=== PATIENT | male | born 1935 | race Caucasian/White ===

== ENCOUNTER → 2020-10-22 | Outpatient (CLI) | payer MEDICARE ==
--- NOTE | 2020-10-22 14:21 | XR ---
EXAMINATION TYPE: XR chest 2V DATE OF EXAM: 10/22/2020 COMPARISON: NONE HISTORY: Hemoptysis TECHNIQUE: Frontal and lateral views of the chest are obtained. FINDINGS: There are linear densities in the bilateral lung bases which most likely represent atelectasis. No la rge airspace disease. Cardiac silhouette is not enlarged. IMPRESSION: Likely bibasilar atelectasis.
[2020-10-22 14:29] LABS: Basophils % (A) 0 %; Eosinophils % (A) 0 %; HCT 31.5 % (39.0-53.0); HGB 9.9 gm/dL (13.0-17.5); Lymphocytes # (A) 0.7 k/uL (1.0-4.8); Lymphocytes % (A) 4 %; MCH 29.6 pg (25.0-35.0); MCHC 31.6 g/dL (31.0-37.0); MCV 93.9 fL (80.0-100.0); Mean Platelet Volume 8.8; Monocytes # (A) 0.8 k/uL (0-1.0); Monocytes % (A) 5 %; Neutrophils # (A) 14.3 k/uL (1.3-7.7); Neutrophils % (A) 89 %; Platelet Count 114 k/uL (150-450); RBC 3.35 m/uL (4.30-5.90); RDW 14.8 % (11.5-15.5); WBC 16.1 k/uL (3.8-10.6)
--- NOTE | 2020-10-22 17:13 | NM ---
EXAMINATION TYPE: NM pul vent and perfuse DATE OF EXAM: 10/22/2020 COMPARISON: NONE HISTORY: TECHNIQUE: Utilizing inhalation of 69.7 mCi Tc 99m DTPA aerosol and intravenous injection of 5.3 mCi of Tc 99m MAA, ventilation and perfusion images are acquired post injection in multiple projections. FINDINGS: There is matching defect involving the entire right lung. There is decreased perfusion and ventilatio n. The ventilation abnormality appears worse than the perfusion abnormality. The left lung shows fairly normal perfusion. There is no ventilation/perfusion mismatch. IMPRESSION: Large matching defect involving the entire right lung most likely relates to severe airway disease. T here is intermediate probability of pulmonary embolism.
== END | disposition home or self-care (01) ==
LOC: RADCTMAIN 13:36
PROVIDERS: ATTEND Nurse Practitioner Adult Health
DX: R91.8 Other nonspecific abnormal finding of lung field (principal); N18.30 Chronic kidney disease, stage 3 unspecified; R04.2 Hemoptysis
CPT/HCPCS: 83880; 85025; 71046; 78582; A9540; A9567

== ENCOUNTER 2020-10-26 12:47 | Observation (INO) | payer MEDICARE ==
[2020-10-26] MEDS ORDERED: PANTOPRAZOLE 40 MG/10 ML VIAL IVP STA (13:03)
--- NOTE | 2020-10-26 13:12 | ED ---
General Adult HPI - General Chief complaint: GI Bleed Stated complaint: GI bleed Time Seen by Provider: 10/26/20 12:58 Source: patient, RN notes reviewed, old records reviewed Mode of arrival: wheelchair Limitations: no limitations - History of Present Illness Initial comments: 85-year-old male presenting with suspected GI bleed. He has had black stool for the past several days. This was tested by his primary care physician and found to be positive for blood. He is on Eliquis with history of DVT following orthopedic surgery. He has had some increased generalized weakness. No fever. No abdominal pain. No chest pain. - Related Data Home Medications Medication Instructions Recorded Confirmed Allopurinol [Zyloprim] 200 mg PO DAILY 10/26/20 10/26/20 Apixaban [Eliquis] 2.5 mg PO BID 10/26/20 10/26/20 Aspirin EC [Ecotrin Low Dose] 81 mg PO DAILY 10/26/20 10/26/20 Budesonide/Formoterol Fumarate 2 puff INHALATION RT-BID 10/26/20 10/26/20 [Symbicort 160-4.5 Mcg Inhaler] Ergocalciferol [Vitamin D2 (1250 1,250 mcg PO Q30D 10/26/20 10/26/20 Mcg = 17780 Iu)] Finasteride [Proscar] 5 mg PO DAILY 10/26/20 10/26/20 Levothyroxine Sodium [Synthroid] 100 mcg PO DAILY 10/26/20 10/26/20 Metoprolol Succinate [Toprol XL] 100 mg PO DAILY 10/26/20 10/26/20 Allergies Allergy/AdvReac Type Severity Reaction Status Date / Time No Known Allergies Allergy Verified 10/26/20 13:51 Review of Systems ROS Statement: Those systems with pertinent positive or pertinent negative responses have been documented in the HPI. ROS Other: All systems not noted in ROS Statement are negative. Past Medical History History of Any Multi-Drug Resistant Organisms: None Reported Past Surgical History: Orthopedic Surgery Additional Past Surgical History / Comment(s): L hip replacement 09/2020 Smoking Status: Former smoker Past Alcohol Use History: None Reported Past Drug Use History: None Reported General Exam Limitations: no limitations General appearance: alert, in no apparent distress Head exam: Present: atraumatic, normocephalic Eye exam: Present: normal appearance, PERRL ENT exam: Present: normal exam Neck exam: Present: normal inspection. Absent: tenderness, meningismus Respiratory exam: Present: normal lung sounds bilaterally. Absent: respiratory distress, wheezes Cardiovascular Exam: Present: regular rate, normal rhythm GI/Abdominal exam: Present: soft. Absent: distended, tenderness, guarding Rectal exam: Present: black stool Extremities exam: Present: normal inspection, normal capillary refill. Absent: pedal edema, calf tenderness Neurological exam: Present: alert, oriented X3, CN II-XII intact. Absent: motor sensory deficit Psychiatric exam: Present: normal affect, normal mood Skin exam: Present: pallor Course Vital Signs 10/26/20 10/26/20 10/26/20 12:49 13:17 13:31 Temperature 98.2 F Pulse Rate 99 97 Respiratory 16 24 20 Rate Blood Pressure 123/68 100/71 O2 Sat by Pulse 96 93 L 97 Oximetry 10/26/20 14:26 Temperature Pulse Rate 88 Respiratory 18 Rate Blood Pressure 116/67 O2 Sat by Pulse 96 Oximetry Medical Decision Making - Medical Decision Making 85-year-old male visiting with melanotic stool, concern for GI bleed. Patient's stool is dark, positive for heme. Hemoglobin is 9.1 with only one previous in the system at 9.9 which was 4 days ago. He started on Protonix. He will be admitted with GI on consult. Case discussed with Dr. Waldron - Lab Data Result diagrams: 10/26/20 13:13 10/26/20 13:13 Lab Results 10/26/20 10/26/20 10/26/20 Range/Units 13:13 13:13 13:13 WBC 18.7 H (3.8-10.6) k/uL RBC 3.06 L (4.30-5.90) m/uL Hgb 9.1 L (13.0-17.5) gm/dL Hct 28.5 L (39.0-53.0) % MCV 93.1 (80.0-100.0) fL MCH 29.9 (25.0-35.0) pg MCHC 32.1 (31.0-37.0) g/dL RDW 16.7 H (11.5-15.5) % Plt Count 299 D (150-450) k/uL MPV 7.4 Neutrophils % 81 % Lymphocytes % 9 % Monocytes % 7 % Eosinophils % 1 % Basophils % 0 % Neutrophils # 15.1 H (1.3-7.7) k/uL Lymphocytes # 1.8 (1.0-4.8) k/uL Monocytes # 1.3 H (0-1.0) k/uL Eosinophils # 0.2 (0-0.7) k/uL Basophils # 0.1 (0-0.2) k/uL Anisocytosis Slight APTT 21.8 L (22.0-30.0) sec Sodium (137-145) mmol/L Potassium (3.5-5.1) mmol/L Chloride (98-107) mmol/L Carbon Dioxide (22-30) mmol/L Anion Gap mmol/L BUN (9-20) mg/dL Creatinine (0.66-1.25) mg/dL Est GFR (CKD-EPI)AfAm (>60 ml/min/1.73 sqM) Est GFR (CKD-EPI)NonAf (>60 ml/min/1.73 sqM) Glucose (74-99) mg/dL Calcium (8.4-10.2) mg/dL Magnesium (1.6-2.3) mg/dL Total Bilirubin (0.2-1.3) mg/dL AST (17-59) U/L ALT (4-49) U/L Alkaline Phosphatase (38-126) U/L Total Protein (6.3-8.2) g/dL Albumin (3.5-5.0) g/dL Stool Occult Blood Positive (Negative) Blood Type Recheck Bld Type Recheck Status Spec Expiration Date 10/26/20 10/26/20 Range/Units 13:13 13:13 WBC (3.8-10.6) k/uL RBC (4.30-5.90) m/uL Hgb (13.0-17.5) gm/dL Hct (39.0-53.0) % MCV (80.0-100.0) fL MCH (25.0-35.0) pg MCHC (31.0-37.0) g/dL RDW (11.5-15.5) % Plt Count (150-450) k/uL MPV Neutrophils % % Lymphocytes % % Monocytes % % Eosinophils % % Basophils % % Neutrophils # (1.3-7.7) k/uL Lymphocytes # (1.0-4.8) k/uL Monocytes # (0-1.0) k/uL Eosinophils # (0-0.7) k/uL Basophils # (0-0.2) k/uL Anisocytosis APTT (22.0-30.0) sec Sodium 143 (137-145) mmol/L Potassium 3.9 (3.5-5.1) mmol/L Chloride 108 H (98-107) mmol/L Carbon Dioxide 25 (22-30) mmol/L Anion Gap 10 mmol/L BUN 49 H (9-20) mg/dL Creatinine 1.42 H (0.66-1.25) mg/dL Est GFR (CKD-EPI)AfAm 53 (>60 ml/min/1.73 sqM) Est GFR (CKD-EPI)NonAf 46 (>60 ml/min/1.73 sqM) Glucose 191 H (74-99) mg/dL Calcium 9.1 (8.4-10.2) mg/dL Magnesium 2.5 H (1.6-2.3) mg/dL Total Bilirubin 0.9 (0.2-1.3) mg/dL AST 85 H (17-59) U/L ALT 31 (4-49) U/L Alkaline Phosphatase 88 (38-126) U/L Total Protein 6.1 L (6.3-8.2) g/dL Albumin 3.1 L (3.5-5.0) g/dL Stool Occult Blood (Negative) Blood Type Recheck No Previous Record Bld Type Recheck Status CABO Indicated Spec Expiration Date 10/29/20202312 Disposition Clinical Impression: Melena Disposition: ADMITTED IP TO THIS [facility] Condition: Stable Is patient prescribed a controlled substance at d/c from ED?: No Referrals: Augustin Tadeo MD [Primary Care Provider] - 1-2 days Decision to Admit Reason: Admit from EC Decision Date: 10/26/20 Decision Time: 14:37
[2020-10-26 14:08] LABS: Anisocytosis Slight; Basophils # (A) 0.1 k/uL (0-0.2); Basophils % (A) 0 %; Eosinophils # (A) 0.2 k/uL (0-0.7); Eosinophils % (A) 1 %; HCT 28.5 % (39.0-53.0); HGB 9.1 gm/dL (13.0-17.5); Lymphocytes # (A) 1.8 k/uL (1.0-4.8); Lymphocytes % (A) 9 %; MCH 29.9 pg (25.0-35.0); MCHC 32.1 g/dL (31.0-37.0); MCV 93.1 fL (80.0-100.0); Mean Platelet Volume 7.4; Monocytes # (A) 1.3 k/uL (0-1.0); Monocytes % (A) 7 %; Neutrophils # (A) 15.1 k/uL (1.3-7.7); Neutrophils % (A) 81 %; Platelet Count 299 k/uL (150-450); RBC 3.06 m/uL (4.30-5.90); RDW 16.7 % (11.5-15.5); WBC 18.7 k/uL (3.8-10.6)
[2020-10-26 14:09] LABS: Albumin 3.1 g/dL (3.5-5.0); Calcium 9.1 mg/dL (8.4-10.2); Magnesium 2.5 mg/dL (1.6-2.3); Potassium 3.9 mmol/L (3.5-5.1); Total Bilirubin 0.9 mg/dL (0.2-1.3); Total Protein 6.1 g/dL (6.3-8.2)
[2020-10-26] MEDS ORDERED: ACETAMINOPHEN TAB 325 MG TAB PO PRN (14:34)
[2020-10-26] MEDS ORDERED: NALOXONE 0.4 MG/ML 1 ML VIAL IV PRN (14:34)
[2020-10-26] MEDS: SODIUM CHLORIDE 0.9% 1,000 ML IV SCH (14:54)
--- NOTE | 2020-10-26 15:21 | P.HPIM ---
History of Present Illness H&P Date: 10/26/20 Chief Complaint: Melena This is a 85-year-old male with past medical history noted below who presented to the emergency room with melena. Patient was seen by me in the ER. His at bedside had been providing history. Apparently, patient had the recent hip replacement surgery and last week he was having problems with worsening cough and some hemoptysis. A VQ scan was ordered and came back intermediate probability for PE and patient was started on anticoagulation with Eliquis. He was also given antibiotic. He is telling me that his respiratory symptoms resolved yesterday he started having episode of black stool. Patient denies any abdominal pain. He has been taking Eliquis as prescribed. He denies drinking alcohol or using any NSAIDs. He never had problems with GI bleed in the past. He reports last colonoscopy more than 10 years ago. He was evaluated in the ER and was found to be hemodynamically stable. Hemoglobin is 9.1. He'll be placed in observation for GI evaluation. Patient denies any history of COPD to his knowledge. He is a former smoker and quit 10 years ago. He is maintained on Symbicort at home Review of Systems Review of system: 14 points review of systems were obtained and were negative except to what were mentioned in the HPI. Past Medical History History of Any Multi-Drug Resistant Organisms: None Reported Past Surgical History: Orthopedic Surgery Additional Past Surgical History / Comment(s): L hip replacement 09/2020 Smoking Status: Former smoker Past Alcohol Use History: None Reported Past Drug Use History: None Reported Medications and Allergies Home Medications Medication Instructions Recorded Confirmed Type Allopurinol [Zyloprim] 200 mg PO DAILY 10/26/20 10/26/20 History Apixaban [Eliquis] 2.5 mg PO BID 10/26/20 10/26/20 History Aspirin EC [Ecotrin Low Dose] 81 mg PO DAILY 10/26/20 10/26/20 History Budesonide/Formoterol Fumarate 2 puff INHALATION RT-BID 10/26/20 10/26/20 History [Symbicort 160-4.5 Mcg Inhaler] Ergocalciferol [Vitamin D2 (1250 1,250 mcg PO Q30D 10/26/20 10/26/20 History Mcg = 19399 Iu)] Finasteride [Proscar] 5 mg PO DAILY 10/26/20 10/26/20 History Levothyroxine Sodium [Synthroid] 100 mcg PO DAILY 10/26/20 10/26/20 History Metoprolol Tartrate [Lopressor] 12.5 mg PO BID 10/26/20 10/26/20 History Simvastatin [Zocor] 40 mg PO HS 10/26/20 10/26/20 History Allergies Allergy/AdvReac Type Severity Reaction Status Date / Time No Known Allergies Allergy Verified 10/26/20 13:51 Physical Exam Vitals: Vital Signs Temp Pulse Resp BP Pulse Ox 10/26/20 14:54 86 18 108/65 98 10/26/20 14:26 88 18 116/67 96 10/26/20 13:31 20 97 10/26/20 13:17 97 24 100/71 93 L 10/26/20 12:49 98.2 F 99 16 123/68 96 Intake and Output 10/26/20 10/26/20 10/26/20 06:59 14:59 22:59 Other: Weight 97.069 kg General: The patient is awake and alert, in no distress Eye: there is normal conjunctiva bilaterally. Neck: The neck is supple, there is no JVD. Cardiovascular: Normal S1-S2, no S3-S4, no murmurs. Respiratory: Lungs clear to auscultation bilaterally Gastrointestinal: Abdomen is soft, nontender Musculoskeletal: There is no pedal edema. Neurological:. Speech is normal. Skin: Skin is warm and dry Results CBC & Chem 7: 10/26/20 13:13 10/26/20 13:13 Labs: Abnormal Lab Results - Last 24 Hours (Table) 10/26/20 10/26/20 10/26/20 Range/Units 13:13 13:13 13:13 WBC 18.7 H (3.8-10.6) k/uL RBC 3.06 L (4.30-5.90) m/uL Hgb 9.1 L (13.0-17.5) gm/dL Hct 28.5 L (39.0-53.0) % RDW 16.7 H (11.5-15.5) % Neutrophils # 15.1 H (1.3-7.7) k/uL Monocytes # 1.3 H (0-1.0) k/uL APTT 21.8 L (22.0-30.0) sec Chloride 108 H (98-107) mmol/L BUN 49 H (9-20) mg/dL Creatinine 1.42 H (0.66-1.25) mg/dL Glucose 191 H (74-99) mg/dL Magnesium 2.5 H (1.6-2.3) mg/dL AST 85 H (17-59) U/L Total Protein 6.1 L (6.3-8.2) g/dL Albumin 3.1 L (3.5-5.0) g/dL Assessment and Plan Assessment: This is a 85-year-old male with past medical history noted below who presented to the emergency room with melena. Patient will be placed on observation for further management of his medical problems noted below. 1. Suspected upper GI bleed, started on IV Protonix 40 mg twice daily. Clear liquids for now and nothing by mouth after midnight. GI consulted for possible EGD in the morning. Hold home dose of Eliquis and aspirin. 2. Acute on chronic anemia, probably blood loss. We will continue to monitor hemoglobin every 12 hours. Transfuse as needed for hemoglobin less than 8 3. Recently diagnosed PE, these are intermittent probability VQ scan after hip replacement surgery. Hold anticoagulation for now in setting of GI bleed. I wonder if the VQ scan was positive secondary to underlying lung disease? 4. Chronic medical problems: Essential hypertension, hypothyroidism, underlying COPD 5. DVT prophylaxis with SCDs
[2020-10-26] MEDS: SYMBICORT 160-4.5 MCG INHALER INHALATION SCH (21:12)
[2020-10-26] MEDS: ATORVASTATIN 20 MG TAB PO SCH (21:17)
[2020-10-26] MEDS: PANTOPRAZOLE 40 MG/10 ML VIAL IVP SCH (21:17)
[2020-10-26] MEDS: METOPROLOL TARTRATE 12.5 MG TAB PO SCH (22:56)
[2020-10-27] MEDS: SODIUM CHLORIDE 0.9% 1,000 ML IV SCH ×2 (05:28→17:29)
[2020-10-27] MEDS: SYMBICORT 160-4.5 MCG INHALER INHALATION SCH ×2 (08:06→20:35)
[2020-10-27] MEDS: LEVOTHYROXINE 100 MCG TAB PO SCH (09:18)
[2020-10-27] MEDS: allopurinoL 100 MG TAB PO SCH (09:18)
[2020-10-27] MEDS: METOPROLOL TARTRATE 12.5 MG TAB PO SCH ×2 (09:19→20:10)
[2020-10-27] MEDS: FINASTERIDE 5 MG TAB PO SCH (09:19)
[2020-10-27] MEDS: PANTOPRAZOLE 40 MG/10 ML VIAL IVP SCH ×2 (09:20→20:10)
[2020-10-27 09:44] LABS: Anisocytosis Slight; Basophils % (A) 0 %; Eosinophils # (A) 0.3 k/uL (0-0.7); Eosinophils % (A) 3 %; HCT 25.8 % (39.0-53.0); HGB 8.4 gm/dL (13.0-17.5); Hypochromasia Slight; Lymphocytes # (A) 1.1 k/uL (1.0-4.8); Lymphocytes % (A) 11 %; MCH 30.8 pg (25.0-35.0); MCHC 32.5 g/dL (31.0-37.0); MCV 94.9 fL (80.0-100.0); Mean Platelet Volume 7.1; Monocytes # (A) 0.6 k/uL (0-1.0); Monocytes % (A) 6 %; Neutrophils # (A) 8.3 k/uL (1.3-7.7); Neutrophils % (A) 79 %; Platelet Count 231 k/uL (150-450); RBC 2.72 m/uL (4.30-5.90); RDW 16.5 % (11.5-15.5); WBC 10.6 k/uL (3.8-10.6)
[2020-10-27 09:47] LABS: Basophils # (A) 0.03 X 10*3/uL (0.00-0.10); Basophils % (A) 0.3 %; Eosinophils # (A) 0.32 X 10*3/uL (0.04-0.35); Eosinophils % (A) 2.8 %; HCT 23.9 % (39.6-50.0); HGB 7.4 g/dL (13.0-17.0); Lymphocytes # (A) 1.27 X 10*3/uL (0.90-5.00); Lymphocytes % (A) 11.3 %; MCH 30.7 pg (27.0-32.0); MCV 99.2 fL (80.0-97.0); Mean Platelet Volume 9.9 fL (9.5-12.2); Monocytes # (A) 1.14 X 10*3/uL (0.20-1.00); Monocytes % (A) 10.2 %; Neutrophils # (A) 8.24 X 10*3/uL (1.80-7.70); Neutrophils % (A) 73.4 %; Platelet Count 188 X 10*3/uL (140-440); RBC 2.41 X 10*6/uL (4.40-5.60); RDW 16.1 % (11.5-14.5); WBC 11.23 X 10*3/uL (4.50-10.00)
[2020-10-27 09:59] LABS: African American GFR (CKD) 59 (>60 ml/min/1.73 sqM); Anion Gap 6 mmol/L; Blood Urea Nitrogen 35 mg/dL (9-20); Calcium 8.4 mg/dL (8.4-10.2); Carbon Dioxide 28 mmol/L (22-30); Chloride 109 mmol/L (98-107); Glucose 135 mg/dL (74-99); Non-African American GFR(CKD) 51 (>60 ml/min/1.73 sqM); Potassium 3.8 mmol/L (3.5-5.1); Sodium 143 mmol/L (137-145)
--- NOTE | 2020-10-27 16:04 | P.CONS ---
History of Present Illness - Reason for Consult Consult date: 10/27/20 Melena, GI bleed Requesting physician: Augustin Tadeo - Chief Complaint Melena - History of Present Illness This is an 85-year-old white male who presented to the emergency department with complaints of black tarry stools for the last 3 days duration. He has a past medical history of recent hip surgery, hypothyroidism, hypertension, and hyperlipidemia. The patient recently underwent hip surgery on 10/19/2020, a few days ago he started coughing frequently and was coughing up phlegm that was reportedly blood-tinged and having shortness of breath. He had an outpatient VQ scan that showed probable pulmonary embolism and was started on Eliquis 2.5 mg twice a day I has primary care physician. He states he started having black tarry stools approximately 3 days ago, one stool per day. He denies any abdominal pain, nausea, or vomiting. States he's had a decreased appetite for the last several days. He denies any previous history of peptic ulcer disease or GERD. He has had no previous GI bleed, no previous EGD. Last colonoscopy he states was likely greater than 10 years. On presentation he had a positive occult stool, WBC 18.7, hemoglobin 9.1, hematocrit 28.5, platelet count 299,000, total bilirubin 0.9, alkaline phosphatase 88, AST 85, ALT 31, with elevation in his BUN. Review of Systems REVIEW OF SYSTEMS: CARDIOPULMONARY: No chest pain. Previous shortness of breath and cough, now resolved. Gastrointestinal: No abdominal pain. No nausea or vomiting. No hematemesis, coffee-ground emesis. No rectal bleeding. Black tarry stools 3 days. GENITOURINARY: No dysuria or hematuria. MUSCULOSKELETAL: Reports normal range of motion., Joint pain. SKIN: No rashes. No jaundice. ENDOCRINE: No chills, fevers. No excessive weight gain or loss. No polydipsia or polyuria. PSYCHIATRIC: Unremarkable. NEUROLOGY: No change in mental status. Denies dizziness, headache. ENT: Vision unremarkable. CONSTITUTIONAL: No recent weight loss. No fever, chills, night sweats. Decreased appetite. Past Medical History Past Medical History: Diabetes Mellitus, Hyperlipidemia, Hypertension, Myocardial Infarction ([place]), Pulmonary Embolus ([place]), Renal Disease Additional Past Medical History / Comment(s): Heart Cath with Stents, sees nephr ology for high K+. Last Myocardial Infarction Date:: 10/17/2009 History of Any Multi-Drug Resistant Organisms: None Reported Past Surgical History: Orthopedic Surgery Additional Past Surgical History / Comment(s): L hip replacement 09/2020 Past Anesthesia/Blood Transfusion Reactions: No Reported Reaction Past Psychological History: No Psychological Hx Reported Smoking Status: Former smoker Past Alcohol Use History: None Reported Past Drug Use History: None Reported Medications and Allergies Home Medications Medication Instructions Recorded Confirmed Type Allopurinol [Zyloprim] 200 mg PO DAILY 10/26/20 10/26/20 History Apixaban [Eliquis] 2.5 mg PO BID 10/26/20 10/26/20 History Aspirin EC [Ecotrin Low Dose] 81 mg PO DAILY 10/26/20 10/26/20 History Budesonide/Formoterol Fumarate 2 puff INHALATION RT-BID 10/26/20 10/26/20 History [Symbicort 160-4.5 Mcg Inhaler] Ergocalciferol [Vitamin D2 (1250 1,250 mcg PO Q30D 10/26/20 10/26/20 History Mcg = 32954 Iu)] Finasteride [Proscar] 5 mg PO DAILY 10/26/20 10/26/20 History Levothyroxine Sodium [Synthroid] 100 mcg PO DAILY 10/26/20 10/26/20 History Metoprolol Tartrate [Lopressor] 12.5 mg PO BID 10/26/20 10/26/20 History Simvastatin [Zocor] 40 mg PO HS 10/26/20 10/26/20 History Allergies Allergy/AdvReac Type Severity Reaction Status Date / Time No Known Allergies Allergy Verified 10/26/20 13:51 Physical Exam Vitals: Vital Signs Temp Pulse Pulse Resp BP BP Pulse Ox 10/27/20 07:56 82 24 10/27/20 06:33 98.2 F 82 24 114/64 97 10/27/20 02:00 98.3 F 81 17 104/62 97 10/26/20 20:00 98.7 F 86 17 106/61 100 10/26/20 19:35 17 10/26/20 19:20 98.0 F 82 18 122/77 10/26/20 18:28 98 F 82 18 116/59 95 10/26/20 16:42 99.0 F 83 18 140/82 100 10/26/20 14:54 86 18 108/65 98 10/26/20 14:26 88 18 116/67 96 10/26/20 13:31 20 97 10/26/20 13:17 97 24 100/71 93 L 10/26/20 12:49 98.2 F 99 16 123/68 96 Intake and Output 10/26/20 10/27/20 10/27/20 22:59 06:59 14:59 Intake Total 480 Output Total 500 400 Balance -20 -400 Intake: Oral 480 Output: Urine 500 400 Other: # Voids 1 2 Weight 97.069 kg General appearance: The patient is alert, oriented, appears in no acute distress. HET: Head is normocephalic and atraumatic. Conjunctiva pink. Sclera anicteric. Neck: Supple without lymphadenopathy. Trachea midline. Heart: S1 S2. Regular rate and rhythm. Lungs: Clear to auscultation. Abdomen: Soft, nontender, nondistended with bowel sounds. No guarding or ri gidity. Skin: No rashes. No jaundice. Extremities: Normal skin color and turgor. No pedal edema. Neurological: No focal deficits. Alert and oriented 2. Results CBC & Chem 7: 10/27/20 09:26 10/27/20 09:26 Labs: Abnormal Lab Results - Last 24 Hours (Table) 10/26/20 10/26/20 10/26/20 Range/Units 13:13 13:13 13:13 WBC 18.7 H (3.8-10.6) k/uL RBC 3.06 L (4.30-5.90) m/uL Hgb 9.1 L (13.0-17.5) gm/dL Hct 28.5 L (39.0-53.0) % RDW 16.7 H (11.5-15.5) % Neutrophils # 15.1 H (1.3-7.7) k/uL Monocytes # 1.3 H (0-1.0) k/uL APTT 21.8 L (22.0-30.0) sec Chloride 108 H (98-107) mmol/L BUN 49 H (9-20) mg/dL Creatinine 1.42 H (0.66-1.25) mg/dL Glucose 191 H (74-99) mg/dL Magnesium 2.5 H (1.6-2.3) mg/dL AST 85 H (17-59) U/L Total Protein 6.1 L (6.3-8.2) g/dL Albumin 3.1 L (3.5-5.0) g/dL Assessment and Plan (1) Melena Narrative/Plan: 85-year-old male who presented to the emergency department with complaints of black tarry stool for the last 3 days duration. Patient recently underwent a right hip surgery 10/19/2020. Following this he had complaints of shortness of breath and a cough. His PCP scheduled an outpatient VQ scan which showed probable pulmonary embolism. He was started on Eliquis. His last dose was 10/26/2020. He has no other symptoms, denies any abdominal pain, nausea, or vomiting. No previous history of peptic ulcer disease or GERD. No previous EGD. Last colonoscopy approximately 10 years ago. He denies taking any NSAIDs. He is on a low-dose daily aspirin. Current Visit: Yes Status: Acute Code(s): K92.1 - MELENA SNOMED Code(s): 8036362 Plan: 1. Clear liquid diet, nothing by mouth after midnight 2. Continue to hold Eliquis 3. Continue Protonix 40 mg twice a day 4. Repeat CBC daily, transfuse for hemoglobin less than 7 5. Avoid NSAIDs 6. Patient will be scheduled for EGD tomorrow, please obtain consent Thank you for this consultation, we will continue to follow Dr. Kinjal Quintanilla I agree with the dictator's note, documented as a scribe by Becca Wright.
[2020-10-27] MEDS ORDERED: LIDOCAINE 1% (10MG/ML) FOR IV START INTRADERMA PRN (16:18)
--- NOTE | 2020-10-27 16:28 | CT ---
CT CHEST FOR PULMONARY EMBOLISM. EXAMINATION TYPE: CT angio chest DATE OF EXAM: 10/27/2020 INDICATION: Possible PE CT DLP: 404.90 mGycm, Automated exposure control for dose reduction was used. CONTRAST: Patient injected with 80 mL of Isovue 370. COMPARISON: None TECHNIQUE: CT of the chest is performed on a spiral scan at 2 mm thick sections. Study is performed with intravenous contrast timed for evaluation for pulmonary embolism. This will limit additional po rtions of the evaluation. 3-D MIP images reconstructed by the technologist are reviewed on the compu ter in the coronal and sagittal planes. FINDINGS: No persistent filling defects are evident to suggest an acute pulmonary embolism. The ascending aorta diameter at the level of the main pulmonary artery is 4.3 cm. The main pulmonary artery diameter at the bifurcation is 2.5 cm. There is a consolidation in the right lower lobe. Status post scattered pneumonitis type changes are within the right lung. There is a 0.8 cm nodule in the periphery of the right middle lobe. Series 5 i mage 92. There is an area of thickening extending from the right lower lobe consolidation measuring 4 .1 x 1.2 cm. Neoplasm is not excluded. Nodular densities within the right perihilar region measuring 0.8 cm. Series 5 image 76. 0.4 cm density is in the posterior right lung. Series 5 image 48 there is increased density through the anterior right apex. Small lymph nodes within the mediastinum. There is a minimal right pleural effusion. Coronary artery calcification is noted. Hiatal hernia is p resent. There is reflux into the proximal inferior vena cava. Limited CT section through the upper abdomen are unremarkable. IMPRESSIONS: 1. No suspicious persistent filling defects pulmonary embolism. 2. Suspected lung mass right midlung. This may extend to a consolidation in the right lower lobe. Und erlying pneumonia may be present. 3. Additional small nodules through the right lung. Metastasis is not excluded.
[2020-10-27] MEDS: LACTATED RINGERS 1,000 ML IV SCH (16:45)
--- NOTE | 2020-10-27 19:15 | P.PN ---
Subjective Progress Note Date: 10/27/20 (delayed charting seen at 1200) Principal diagnosis: melena Patient is an 85-year-old male with a history of diabetes mellitus, hypertension, dyslipidemia who was recently diagnosed with pulmonary embolism secondary to intermediate probability VQ scan and was started on Eliquis. He then noted dark tarry stools and subsequently presented to the ER. He was seen by gastroenterology and plan is for colonoscopy. Patient seen and examined at bedside. He denies any nausea or vomiting. He hasn't had any recurrent stools today. He denies any chest pain or shortness of breath. We discussed obtaining CT of the chest to confirm pulmonary embolism as he is now higher risk for resuming anticoagulation and VQ scan was atypical for pulmonary embolism. He reports smoking from age 10 to age 74 approximately 1-2 packs daily. He denies any history of known COPD or emphysema. General: non toxic, no distress, appears at stated age Derm: warm, dry Head: atraumatic, normocephalic, symmetric Eyes: EOMI, no lid lag, anicteric sclera Mouth: no lip lesion, mucus membranes moist Cardiovascular: S1S2 reg, no murmur, positive posterior tibial pulse bilateral, Lungs: CTA bilateral, no rhonchi, no rales , no accessory muscle use Abdominal: soft, nontender to palpation, no guarding, no appreciable organomegaly Ext: no gross muscle atrophy, no edema, no contractures Neuro: CN II-XI grossly intact, no focal neuro deficits Psych: Alert, oriented, appropriate affect GI bleed with symptomatic anemia -No indication for transfusion at this point in time -Follow CBC -GI recommendations appreciated plan is for endoscopy in a.m. Possible pulmonary embolism -Eliquis on his on hold secondary to GI bleed -Check CTA of chest CKD, at baseline -Repeat creatinine a.m. -Patient has been pretreated with IV fluids for contrast exposure. Diabetes mellitus type 2 -Not on any oral medication -Follow a.m. blood glucose o Chronic conditions: Hypertension, dyslipidemia, coronary artery disease Objective - Vital Signs Vital signs: Vital Signs Temp 97.9 F 10/27/20 13:41 Pulse 63 10/27/20 14:00 Resp 20 10/27/20 14:00 BP 98/66 10/27/20 13:41 Pulse Ox 98 10/27/20 13:41 Intake & Output 10/27/20 10/27/20 10/28/20 06:59 18:59 06:59 Output Total 900 400 Balance -900 -400 Weight 97.069 kg Output: Urine 900 400 Other: # Voids 2 1 # Bowel Movements 0 - Labs CBC & Chem 7: 10/27/20 09:26 10/27/20 09:26 Labs: Abnormal Lab Results - Last 24 Hours (Table) 10/27/20 10/27/20 10/27/20 Range/Units 06:23 09:26 09:26 WBC 11.23 H (4.50-10.00) X 10*3/uL RBC 2.41 L 2.72 L (4.40-5.60) X 10*6/uL Hgb 7.4 L 8.4 L (13.0-17.0) g/dL Hct 23.9 L 25.8 L (39.6-50.0) % MCV 99.2 H (80.0-97.0) fL MCHC 31.0 L (32.0-37.0) g/dL RDW 16.1 H 16.5 H (11.5-14.5) % Absolute Nucleated RBC 0.05 H (0.00-0.00) X 10*3/uL Immature Gran # 0.23 H (0.00-0.04) X 10*3/uL Neutrophils # 8.24 H 8.3 H (1.80-7.70) X 10*3/uL Monocytes # 1.14 H (0.20-1.00) X 10*3/uL NRBC/100 WBC Diff 0.4 H (0.0-0.0) /100 WBCS Chloride 109 H (98-107) mmol/L BUN 35 H (9-20) mg/dL Creatinine 1.29 H (0.66-1.25) mg/dL Glucose 135 H (74-99) mg/dL
[2020-10-27] MEDS: ATORVASTATIN 20 MG TAB PO SCH (20:10)
[2020-10-28] MEDS: LEVOTHYROXINE 100 MCG TAB PO SCH (05:38)
[2020-10-28] MEDS: SYMBICORT 160-4.5 MCG INHALER INHALATION SCH ×2 (07:48→21:22)
[2020-10-28] MEDS: SODIUM CHLORIDE 0.9% 1,000 ML IV SCH ×2 (08:02→17:08)
[2020-10-28] MEDS: allopurinoL 100 MG TAB PO SCH (08:02)
[2020-10-28] MEDS: FINASTERIDE 5 MG TAB PO SCH (08:02)
[2020-10-28] MEDS: METOPROLOL TARTRATE 12.5 MG TAB PO SCH ×2 (08:02→22:21)
[2020-10-28] MEDS: PANTOPRAZOLE 40 MG/10 ML VIAL IVP SCH ×2 (08:03→21:56)
[2020-10-28 09:54] LABS: HCT 25.3 % (39.6-50.0); HGB 7.7 g/dL (13.0-17.0); MCH 30.6 pg (27.0-32.0); MCHC 30.4 g/dL (32.0-37.0); MCV 100.4 fL (80.0-97.0); Mean Platelet Volume 9.9 fL (9.5-12.2); Platelet Count 236 X 10*3/uL (140-440); RBC 2.52 X 10*6/uL (4.40-5.60); RDW 16.4 % (11.5-14.5); WBC 10.87 X 10*3/uL (4.50-10.00)
[2020-10-28 11:16] LABS: Basophils # (A) 0.03 X 10*3/uL (0.00-0.10); Basophils % (A) 0.3 %; Eosinophils # (A) 0.34 X 10*3/uL (0.04-0.35); Eosinophils % (A) 3.1 %; Lymphocytes # (A) 1.49 X 10*3/uL (0.90-5.00); Lymphocytes % (A) 13.7 %; Monocytes # (A) 0.74 X 10*3/uL (0.20-1.00); Monocytes % (A) 6.8 %; Neutrophils # (A) 8.14 X 10*3/uL (1.80-7.70); Neutrophils % (A) 74.9 %
[2020-10-28] MEDS ORDERED: PROPOFOL 10 MG/ML 20 ML VIAL IV ONE (11:54)
[2020-10-28] MEDS ORDERED: LIDOCAINE 1% INJ 10MG/ML (20 ML MDV) ONE (11:54)
[2020-10-28] MEDS ORDERED: IV FLUID CONTINUATION 800 ML IV ONE (11:55)
--- NOTE | 2020-10-28 12:08 | P.PCN ---
Date of Procedure: 10/28/20 Procedure(s) Performed: BRIEF HISTORY: Patient is a 85-year-old, pleasant, white male scheduled for an upper endoscopy as a part of evaluation of multiple episodes of dark colored stools of 3 days' duration. He was recently started on a Eliquis of possible DVT following left hip repair. Eliquis has been on hold for the last 2 days.. PROCEDURE PERFORMED: Esophagogastroduodenoscopy. PREOPERATIVE DIAGNOSIS:.acute GI bleed and anemia with a hemoglobin of 7.7 g/dL. IV sedation per anesthesia. PROCEDURE: After informed consent was obtained, the patient was brought into the endoscopy unit. IV sedation was administered by Anesthesia under continuous monitoring. Initially the Olympus GIF-140 video endoscope was inserted into the mouth. Esophagus intubated without any difficulty. It was gradually advanced into the stomach and duodenum and carefully examined. there was early pyloric stenosis noted but however with gentle pressure I was able to advance the scope into the duodenum. The bulb and the second part of the duodenum appeared normal. The scope at this time was withdrawn to the stomach, adequately insufflated with air, and upon careful examination, mucosa of the antrum, body, cardia and the fundus appeared normal. The scope was then withdrawn into the esophagus. The GE junction was located at 39 cm from the incisors. The esophagus appeared normal. There were no erosions or ulcerations seen and the patient tolerated the procedure well. IMPRESSION: 1.. 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 No active upper GI bleed. RECOMMENDATIONS: The findings of this examination were discussed with the patient evidence of active upper GI bleed seen, he'll be scheduled for a colonoscopy tomorrow. He will remain on clear liquid diet today. Continue to hold Eliquis for now. .
--- NOTE | 2020-10-28 12:43 | P.PN ---
Subjective Progress Note Date: 10/28/20 No new complaints. Doing well, awaiting EGD. Objective - Vital Signs Vital signs: Vital Signs Temp 98.3 F 10/28/20 07:00 Pulse 88 10/28/20 07:00 Resp 16 10/28/20 07:00 BP 116/66 10/28/20 07:00 Pulse Ox 94 L 10/28/20 07:00 Intake & Output 10/27/20 10/28/20 10/28/20 18:59 06:59 18:59 Intake Total 100 Output Total 400 450 Balance -400 -450 100 Intake: IV 100 Output: Urine 400 450 Other: # Voids 1 1 # Bowel Movements 0 - Exam Gen: awake, alert HEENT: normocephalic, atraumatic, good hearing acuity, moist mucous membranes Resp: good air exchange, breathing comfortably with no accessory muscle use CVS: good distal perfusion x 4, GI: soft, NTTP, ND : no SPT, no CVAT, ely catheter not present MSK: no pitting edema, no clubbing Neuro: non-focal, moving all extremities Psych: cooperative, euthymic mood - Labs CBC & Chem 7: 10/28/20 04:50 10/27/20 09:26 Labs: Abnormal Lab Results - Last 24 Hours (Table) 10/28/20 Range/Units 04:50 WBC 10.87 H (4.50-10.00) X 10*3/uL RBC 2.52 L (4.40-5.60) X 10*6/uL Hgb 7.7 L (13.0-17.0) g/dL Hct 25.3 L (39.6-50.0) % MCV 100.4 H (80.0-97.0) fL MCHC 30.4 L (32.0-37.0) g/dL RDW 16.4 H (11.5-14.5) % Absolute Nucleated RBC 0.05 H (0.00-0.00) X 10*3/uL Immature Gran # 0.13 H (0.00-0.04) X 10*3/uL Neutrophils # 8.14 H (1.80-7.70) X 10*3/uL NRBC/100 WBC Diff 0.5 H (0.0-0.0) /100 WBCS Assessment and Plan Assessment: GI bleed with symptomatic anemia -No indication for transfusion at this point in time -Follow CBC -GI recommendations appreciated plan is for endoscopy 10/28 Right Middle Lobe Mass -Eliquis on his on hold secondary to GI bleed -Check CTA of chest = possible RML mass, f/u with pulm for bx -Pulm consult CKD, at baseline -Repeat creatinine a.m. -Patient has been pretreated with IV fluids for contrast exposure. Diabetes mellitus type 2 -Not on any oral medication -Follow a.m. blood glucose o Chronic conditions: Hypertension, dyslipidemia, coronary artery disease
--- NOTE | 2020-10-28 16:11 | P.CNPUL ---
History of Present Illness Consult date: 10/28/20 Requesting physician: Dahlia Waldron Reason for consult: abnormal CXR/CT Chief complaint: Black tarry stools History of present illness: This is a very pleasant 85-year-old gentleman who presented here to the emergency room on 10/26/2020 with complaints of black tarry stools for several days. He was on Eliquis for history of DVT following orthopedic surgery. He had some generalized weakness as well. A CT angiogram was performed to rule out pulmonary embolism. It was negative for PE. However he was found to have a consolidation in the right lower lobe. There is a 0.8 cm nodule in the periphery of the right middle lobe. There is thickening extended from the right lower lobe consolidation measuring 4.1 x 1.2 cm. Neoplasm is not excluded. We are consulted for the same. He is seen today in consultation on the regular medical floor. He is currently resting comfortably in bed. Awake and alert in no acute distress. He did undergo EGD today which revealed early pyloric stenos is but no evidence of peptic ulcer disease. No active upper GI bleed. Plan is for colonoscopy tomorrow. His Eliquis is on hold. He denies any worsening shortness of breath, cough or congestion. No fever chills or night sweats. He is maintaining O2 saturations in the 90s on room air. He is afebrile. Hemodynamically stable. White count 10.8. Hemoglobin 7.7. Sodium 143. Potassium 3.8. Creatinine 1.29. Coronavirus not detected. Stool for occult blood positive. 0.9% normal saline at 75 ML's per hour. On Protonix. Review of Systems REVIEW OF SYSTEMS: CONSTITUTIONAL: Denies any recent significant weight loss or weight gain. EYES: Denies change in vision. EARS, NOSE, MOUTH, THROAT: Denies headaches, denies sore throat. CARDIOVASCULAR: Denies chest pain, palpitations or syncopal episodes. RESPIRATORY: Denies shortness of breath, cough, congestion or hemoptysis. GASTROINTESTINAL: Positive for black tarry stools GENITOURINARY: Denies hematuria, denies infections. MUSKULOSKELETAL: Denies pain, denies swelling. INTEGUMENTARY: Denies rash, denies eczema. NEUROLOGICAL: Denies recent memory loss, no recent seizure activity. PSYCHIATRIC: Denies anxiety, denies depression. HEMATOLOGIC/LYMPHATIC: Denies anemia, denies enlarged lymph nodes. Past Medical History Past Medical History: Diabetes Mellitus, Hyperlipidemia, Hypertension, Myocardial Infarction ([place]), Pulmonary Embolus ([place]), Renal Disease Additional Past Medical History / Comment(s): Heart Cath with Stents, sees nephrology for high K+. Last Myocardial Infarction Date:: 10/17/2009 History of Any Multi-Drug Resistant Organisms: None Reported Past Surgical History: Orthopedic Surgery Additional Past Surgical History / Comment(s): L hip replacement 09/2020 Past Anesthesia/Blood Transfusion Reactions: No Reported Reaction Past Psychological History: No Psychological Hx Reported Smoking Status: Former smoker Past Alcohol Use History: None Reported Past Drug Use History: None Reported Medications and Allergies Home Medications Medication Instructions Recorded Confirmed Type Allopurinol [Zyloprim] 200 mg PO DAILY 10/26/20 10/26/20 History Apixaban [Eliquis] 2.5 mg PO BID 10/26/20 10/26/20 History Aspirin EC [Ecotrin Low Dose] 81 mg PO DAILY 10/26/20 10/26/20 History Budesonide/Formoterol Fumarate 2 puff INHALATION RT-BID 10/26/20 10/26/20 History [Symbicort 160-4.5 Mcg Inhaler] Ergocalciferol [Vitamin D2 (1250 1,250 mcg PO Q30D 10/26/20 10/26/20 History Mcg = 67236 Iu)] Finasteride [Proscar] 5 mg PO DAILY 10/26/20 10/26/20 History Levothyroxine Sodium [Synthroid] 100 mcg PO DAILY 10/26/20 10/26/20 History Metoprolol Tartrate [Lopressor] 12.5 mg PO BID 10/26/20 10/26/20 History Simvastatin [Zocor] 40 mg PO HS 10/26/20 10/26/20 History Allergies Allergy/AdvReac Type Severity Reaction Status Date / Time No Known Allergies Allergy Verified 10/26/20 13:51 Physical Exam Vitals: Vital Signs Temp Pulse Resp BP Pulse Ox 10/28/20 14:45 98.5 F 66 14 110/65 92 L 10/28/20 07:00 98.3 F 88 16 116/66 94 L 10/28/20 01:41 98.4 F 73 16 96/56 93 L 10/27/20 19:11 98.4 F 70 18 108/65 93 L Intake and Output 10/28/20 10/28/20 10/28/20 06:59 14:59 22:59 Intake Total 100 Output Total 450 500 Balance -450 -400 Intake: IV 100 Output: Urine 450 500 Other: # Voids 1 4 # Bowel Movements 1 GENERAL EXAM: Alert, very pleasant 85-year-old gentleman, on room air, comfortable in no apparent distress. HEAD: Normocephalic. EYES: Normal reaction of pupils, equal size. NOSE: Clear with pink turbinates. THROAT: No erythema or exudates. NECK: No masses, no JVD. CHEST: No chest wall deformity. LUNGS: Equal air entry with crackles in the right base CVS: S1 and S2 normal with no audible murmur, regular rhythm. ABDOMEN: No hepatosplenomegaly, normal bowel sounds, no guarding or rigidity. SPINE: No scoliosis or deformity SKIN: No rashes CENTRAL NERVOUS SYSTEM: No focal deficits, tone is normal in all 4 extremities. EXTREMITIES: There is no peripheral edema. No clubbing, no cyanosis. Peripheral pulses are intact. Results - Laboratory Findings CBC and BMP: 10/28/20 04:50 10/27/20 09:26 Abnormal lab findings: Abnormal Labs 10/26/20 10/26/20 10/26/20 13:13 13:13 13:13 WBC 18.7 H RBC 3.06 L Hgb 9.1 L Hct 28.5 L MCV MCHC RDW 16.7 H Absolute Nucleated RBC Immature Gran # Neutrophils # 15.1 H Monocytes # 1.3 H NRBC/100 WBC Diff APTT 21.8 L Chloride 108 H BUN 49 H Creatinine 1.42 H Glucose 191 H Magnesium 2.5 H AST 85 H Total Protein 6.1 L Albumin 3.1 L 10/27/20 10/27/20 10/27/20 06:23 09:26 09:26 WBC 11.23 H RBC 2.41 L 2.72 L Hgb 7.4 L 8.4 L Hct 23.9 L 25.8 L MCV 99.2 H MCHC 31.0 L RDW 16.1 H 16.5 H Absolute Nucleated RBC 0.05 H Immature Gran # 0.23 H Neutrophils # 8.24 H 8.3 H Monocytes # 1.14 H NRBC/100 WBC Diff 0.4 H APTT Chloride 109 H BUN 35 H Creatinine 1.29 H Glucose 135 H Magnesium AST Total Protein Albumin 10/28/20 04:50 WBC 10.87 H RBC 2.52 L Hgb 7.7 L Hct 25.3 L MCV 100.4 H MCHC 30.4 L RDW 16.4 H Absolute Nucleated RBC 0.05 H Immature Gran # 0.13 H Neutrophils # 8.14 H Monocytes # NRBC/100 WBC Diff 0.5 H APTT Chloride BUN Creatinine Glucose Magnesium AST Total Protein Albumin - Diagnostic Findings CT scan - chest: image reviewed Assessment and Plan Assessment: 1 GI bleed of unclear etiology. EGD today revealed no active bleeding. Plans for colonoscopy in a.m. 2 History of DVT and on Eliquis in the outpatient setting, currently on hold 3 Consolidation in the right lower lobe. 0.8 cm nodule in the periphery of the right middle lobe. Thickening extending to the right lower lobe consolidation measuring 4.1 x 1.2 cm. Neoplasm is not excluded. 4 4 History of chronic obstructive pulmonary disease 5 Former smoker 6 Hypertension 7 Hypothyroidism Plan: The patient was seen and evaluated by Dr. Hill CAT scan of the chest reviewed Cannot rule out underlying neoplasm Plan is for outpatient workup Follow-up in the office in 1-2 weeks' For colonoscopy in a.m. We'll continue to follow and make further recommendations based on his clinical status I, the cosigning physician, performed a history & physical examination of the patient. Lungs sounds with crackles in the high posterior bases. Maintaining good O2 saturations in the 90s on room air. I discussed the assessment and plan of care with my nurse practitioner, Juana Gonzalez. I attest to the above consultation as dictated by her. Time with Patient: Greater than 30
[2020-10-28] MEDS ORDERED: PEG 3350-NA SULF,BICARB,CL/KCL 4,000 ML BOTTLE PO ONE (17:00)
[2020-10-28] MEDS: LACTATED RINGERS 1,000 ML IV SCH (17:32)
[2020-10-28] MEDS: ATORVASTATIN 20 MG TAB PO SCH (21:56)
[2020-10-29] MEDS: LEVOTHYROXINE 100 MCG TAB PO SCH (06:01)
[2020-10-29] MEDS: SYMBICORT 160-4.5 MCG INHALER INHALATION SCH (07:36)
[2020-10-29 07:52] VITALS: RESP 18
[2020-10-29] MEDS: METOPROLOL TARTRATE 12.5 MG TAB PO SCH (08:40)
[2020-10-29] MEDS: FINASTERIDE 5 MG TAB PO SCH (08:41)
[2020-10-29] MEDS: PANTOPRAZOLE 40 MG/10 ML VIAL IVP SCH (08:41)
[2020-10-29] MEDS: allopurinoL 100 MG TAB PO SCH (08:41)
[2020-10-29] MEDS: SODIUM CHLORIDE 0.9% 1,000 ML IV SCH (08:42)
[2020-10-29] MEDS ORDERED: AMOXIC-POT CLAV 875-125MG 1 EACH TAB PO SCH (09:00)
[2020-10-29] MEDS ORDERED: IV FLUID CONTINUATION 1,000 ML IV ONE ×2 (13:06)
[2020-10-29] MEDS ORDERED: PROPOFOL 10 MG/ML 20 ML VIAL IV ONE (13:10)
--- NOTE | 2020-10-29 13:18 | P.PN ---
Subjective Progress Note Date: 10/29/20 Principal diagnosis: GI bleed This is a very pleasant 85-year-old gentleman who presented here to the emergency room on 10/26/2020 with complaints of black tarry stools for several days. He was on Eliquis for history of DVT following orthopedic surgery. He had some generalized weakness as well. A CT angiogram was performed to rule out pulmonary embolism. It was negative for PE. However he was found to have a consolidation in the right lower lobe. There is a 0.8 cm nodule in the periphery of the right middle lobe. There is thickening extended from the right lower lobe consolidation measuring 4.1 x 1.2 cm. Neoplasm is not excluded. We are consulted for the same. He is seen today in consultation on the regular medical floor. He is currently resting comfortably in bed. Awake and alert in no acute distress. He did undergo EGD today which revealed early pyloric stenosis but no evidence of peptic ulcer disease. No active upper GI bleed. Plan is for colonoscopy tomorrow. His Eliquis is on hold. He denies any worsening shortness of breath, cough or congestion. No fever chills or night sweats. He is maintaining O2 saturations in the 90s on room air. He is afebrile. Hemodynamically stable. White count 10.8. Hemoglobin 7.7. Sodium 143. Potassium 3.8. Creatinine 1.29. Coronavirus not detected. Stool for occult blood positive. 0.9% normal saline at 75 ML's per hour. On Protonix. The patient is seen today 10/29/2020 in follow-up on the regular medical floor. He is currently resting quite comfortably in bed. Awake, alert in no acute dis tress. Maintaining O2 saturations in the upper 90s on room air. He's been afebrile. Hemodynamically stable. He is awaiting colonoscopy today. No further active bleeding noted. He remains on IV Protonix. Objective - Vital Signs Vital signs: Vital Signs Temp 98.4 F 10/29/20 07:00 Pulse 72 10/29/20 07:00 Resp 18 10/29/20 07:00 BP 113/70 10/29/20 07:00 Pulse Ox 98 10/29/20 07:00 Intake & Output 10/28/20 10/29/20 10/29/20 18:59 06:59 18:59 Intake Total 100 Output Total 500 6 Balance -400 -6 Intake: IV 100 Output: Urine 500 Stool 6 Other: Voiding Method Toilet # Voids 4 1 # Bowel Movements 1 2 # Emeses 1 - Exam GENERAL EXAM: Alert, very pleasant 85-year-old gentleman, on room air, comfortable in no apparent distress. HEAD: Normocephalic. EYES: Normal reaction of pupils, equal size. NOSE: Clear with pink turbinates. THROAT: No erythema or exudates. NECK: No masses, no JVD. CHEST: No chest wall deformity. LUNGS: Equal air entry with crackles in the right base CVS: S1 and S2 normal with no audible murmur, regular rhythm. ABDOMEN: No hepatosplenomegaly, normal bowel sounds, no guarding or rigidity. SPINE: No scoliosis or deformity SKIN: No rashes CENTRAL NERVOUS SYSTEM: No focal deficits, tone is normal in all 4 extremities. EXTREMITIES: There is no peripheral edema. No clubbing, no cyanosis. Peripheral pulses are intact. - Labs CBC & Chem 7: 10/28/20 04:50 10/27/20 09:26 Assessment and Plan Assessment: 1 GI bleed of unclear etiology. EGD today revealed no active bleeding. Plans for colonoscopy today 2 History of DVT and on Eliquis in the outpatient setting, currently on hold 3 Consolidation in the right lower lobe. 0.8 cm nodule in the periphery of the right middle lobe. Thickening extending to the right lower lobe consolidation measuring 4.1 x 1.2 cm. Neoplasm is not excluded. 4 History of chronic obstructive pulmonary disease 5 Former smoker 6 Hypertension 7 Hypothyroidism Plan: The patient was seen and evaluated by Dr. Liz Pal from the pulmonary standpoint Plan is for outpatient workup regarding the pulmonary nodule Follow-up in the office in 1-2 weeks' Awaiting colonoscopy today Home once cleared by medicine I, the cosigning physician, performed a history & physical examination of the patient. Lungs sounds with crackles in the right posterior bases. Maintaining good O2 saturations in the 90s on room air. I discussed the assessment and plan of care with my nurse practitioner, Juana Gonzalez. I attest to the above consultation as dictated by her.
--- NOTE | 2020-10-29 13:24 | P.PCN ---
Date of Procedure: 10/29/20 Procedure(s) Performed: BRIEF HISTORY: Patient is a 85-year-old pleasant male admitted hospital with dark-colored stools for the last 3 days' duration. He was given was 7.5 g/dL. He has history of DVT has been on a Eliquis has been on hold for the last 3 days. Upper endoscopy done yesterday was unremarkable. His and scheduled for colonoscopy to evaluate further. PROCEDURE PERFORMED: Colonoscopy. PREOPERATIVE DIAGNOSIS: Symptomatic anemia and dark colored stools. Negative upper endoscopy yesterday IV sedation per Anesthesia. PROCEDURE: After informed consent was obtained, the patient, was brought into the endoscopy unit. IV sedation was administered by Anesthesia under continuous monitoring. Digital rectal examination was normal. Initially the Olympus CF-160 flexible video colonoscope was then inserted in the rectum, gradually advanced into the cecum without any difficulty. Careful examination was performed as the scope was gradually being withdrawn. Ileocecal valve and the appendiceal orifice were visualized and appeared normal. Prep was excellent. Mucosa of the cecum, ascending colon, transverse colon, descending colon, sigmoid colon, and rectum appeared normal. scattered left sided diverticulosis. Retroflexion was performed in the rectum and no lesions were seen. The patient tolerated the procedure well. IMPRESSION: Normal-appearing colon from rectum to cecum with no evidence of colitis or colorectal neoplasia or angiectasia... Scattered left sided diverticulosis. RECOMMENDATIONS: Findings of this examination were discussed with the patient.. Diet will be advanced as tolerated. Anticoagulation can be resumed if indicated. Monitor CBC daily. .
[2020-10-29 14:49] VITALS: BP 110/70; PULSE 66; TEMP 98
--- NOTE | 2020-10-29 15:11 | P.DS ---
Providers Date of admission: 10/26/20 14:34 Expected date of discharge: 10/29/20 Attending physician: Dahlia Waldron Consults: 10/26/20 14:35 Consult Physician Routine Consulting Provider: Bernie Quintanilla Consult Reason/Comments: GI bleed Do you want consulting provider notified?: Yes 10/27/20 19:13 Consult Physician Routine Consulting Provider: Moe Hill Consult Reason/Comments: Lung mass Do you want consulting provider notified?: Yes, Notify in am 10/28/20 12:43 Consult Physician Routine Consulting Provider: Moe Hill Consult Reason/Comments: RML mass Do you want consulting provider notified?: Yes Primary care physician: Augustin Tadeo Hospital Course: Discharge Diagnosis: Right sided lung lesion, probable concominent pneumonia GI bleed like due to diverticulosis Anemia due to acute blood loss CKD III HTN HLD CAD Hospital Course: Patient is an 85-year-old male with a history of diabetes mellitus, hypertension, dyslipidemia who was recently diagnosed with pulmonary embolism secondary to intermediate probability VQ scan and was started on Eliquis. He then noted dark tarry stools and subsequently presented to the ER. He underwent a CTA of the chest which ruled out pulmonary embolism. But did demonstrate concerns for possible right sided mass versus pneumonia. He was seen by pulmonology who plans on outpatient follow-up in 1-2 weeks for further evaluation. He is also started on antibiotics due to his pulmonary abnormality, symptoms of cough and hemoptysis, and leukocytosis. He was seen by gastroenterology and no signs of active bleeding. Hemoglobin was stable.He was dicharged home. Follow-up: Dr. Tadeo next week, Dr. Hill in 1-2 weeks. Complete augmentin. CTA chest: No pulmonary embolism, right sided lung consolidation with concern for mass, additional small nodules. EGD: early pyloric stenosis, no peptic ulcer disease, no active bleeding Colonoscopy: Left sided diverticulosis Patient seen and examined at bedside. No chest pain, shortness of breath, dizziness. Vital signs reviewed and stable. General: non toxic, no distress, appears at stated age Derm: warm, dry Head: atraumatic, normocephalic, symmetric, hard of hearing Eyes: EOMI, no lid lag, anicteric sclera Mouth: no lip lesion, mucus membranes moist Cardiovascular: S1S2 reg, no murmur, positive posterior tibial pulse bilateral, Lungs: roonchi bilateral , no accessory muscle use Abdominal: soft, nontender to palpation, no guarding, no appreciable organomegaly Ext: no gross muscle atrophy, no edema, no contractures Neuro: CN II-XI grossly intact, no focal neuro deficits Psych: Alert, oriented, appropriate affect A total of 25 minutes of time were spent preparing this complex discharge summary . Patient Condition at Discharge: Stable Plan - Discharge Summary New Discharge Prescriptions: New Amoxic-Pot Clav 875-125Mg [Augmentin 875-125] 1 each PO Q12HR #20 tab Continue Budesonide/Formoterol Fumarate [Symbicort 160-4.5 Mcg Inhaler] 2 puff INHALATION RT-BID Finasteride [Proscar] 5 mg PO DAILY Aspirin EC [Ecotrin Low Dose] 81 mg PO DAILY Allopurinol [Zyloprim] 200 mg PO DAILY Metoprolol Tartrate [Lopressor] 12.5 mg PO BID Simvastatin [Zocor] 40 mg PO HS Levothyroxine Sodium [Synthroid] 100 mcg PO DAILY Ergocalciferol [Vitamin D2 (1250 Mcg = 64753 Iu)] 1,250 mcg PO Q30D Discontinued Apixaban [Eliquis] 2.5 mg PO BID Discharge Medication List Allopurinol [Zyloprim] 200 mg PO DAILY 10/26/20 [History] Aspirin EC [Ecotrin Low Dose] 81 mg PO DAILY 10/26/20 [History] Budesonide/Formoterol Fumarate [Symbicort 160-4.5 Mcg Inhaler] 2 puff INHALATION RT-BID 10/26/20 [History] Ergocalciferol [Vitamin D2 (1250 Mcg = 00657 Iu)] 1,250 mcg PO Q30D 10/26/20 [History] Finasteride [Proscar] 5 mg PO DAILY 10/26/20 [History] Levothyroxine Sodium [Synthroid] 100 mcg PO DAILY 10/26/20 [History] Metoprolol Tartrate [Lopressor] 12.5 mg PO BID 10/26/20 [History] Simvastatin [Zocor] 40 mg PO HS 10/26/20 [History] Amoxic-Pot Clav 875-125Mg [Augmentin 875-125] 1 each PO Q12HR #20 tab 10/29/20 [Rx] Follow up Appointment(s)/Referral(s): Augustin Tadeo MD [Primary Care Provider] - 1-2 days Moe Hill DO [Doctor of Osteopathic Medicine] - 1 Week Activity/Diet/Wound Care/Special Instructions: Activity: as tolerated Diet: heart healthy Iron over the counter once daily Discharge Disposition: HOME SELF-CARE
== END 2020-10-29 16:30 | disposition home or self-care (01) ==
LOC: EC 12:47 → 6NMEDSUR 14:34
PROVIDERS: ADMIT Internal Medicine; ATTEND Internal Medicine
DX: K92.1 Melena (principal); K57.30 Diverticulosis of large intestine without perforation or abscess without bleeding; D62 Acute posthemorrhagic anemia; R91.8 Other nonspecific abnormal finding of lung field; Z20.822 Contact with and (suspected) exposure to COVID-19; I12.9 Hypertensive chronic kidney disease with stage 1 through stage 4 chronic kidney disease, or unspecified chronic kidney disease; N18.30 Chronic kidney disease, stage 3 unspecified; E78.5 Hyperlipidemia, unspecified; I25.10 Atherosclerotic heart disease of native coronary artery without angina pectoris; E11.22 Type 2 diabetes mellitus with diabetic chronic kidney disease; J44.9 Chronic obstructive pulmonary disease, unspecified; I25.2 Old myocardial infarction; Z87.891 Personal history of nicotine dependence; E03.9 Hypothyroidism, unspecified; K31.1 Adult hypertrophic pyloric stenosis; Z79.01 Long term (current) use of anticoagulants; Z79.51 Long term (current) use of inhaled steroids; Z79.82 Long term (current) use of aspirin; Z79.890 Hormone replacement therapy; Z79.899 Other long term (current) drug therapy; Z86.711 Personal history of pulmonary embolism; Z86.718 Personal history of other venous thrombosis and embolism; Z96.642 Presence of left artificial hip joint
CPT/HCPCS: 45378; 43235; 96376 ×3; 96361 ×2; 96374; 99285; 36415; 94640 ×6; 86900; 86901; 80053; 80048; 83735; 85025 ×3; 85730; 86850; 82272; 87635; 71275; G0378 ×4; S0138 ×3; J2001; J2704 ×2; C9113 ×4; Q9967